=== PATIENT | male | born 1965 | race Caucasian/White ===

== ENCOUNTER 2018-02-26 12:44 | Emergency (ER) | payer SELFPAY ==
[2018-02-26] MEDS ORDERED: Sodium Chloride 0.9% 1,000 ML ONE (13:23)
[2018-02-26 13:49] LABS: ALT (SGPT) 19 U/L (8-55); AST (SGOT) 24 U/L (5-34); Alkaline Phosphatase 78 U/L (40-150); Anion Gap 16 mmol/L (10-20); BUN (Urea Nitrogen) 13 mg/dL (8.4-25.7); Bilirubin, Total 0.5 mg/dL (0.2-1.2); Calc. Creatinine Clearance 0 mL/min (70-130); Calcium 9.6 mg/dL (7.8-10.44); Carbon Dioxide 23 mmol/L (22-29); Chloride 103 mmol/L (98-107); Estimated GFR-MDRD Greater than 90; Globulin 3.9 g/dL (2.4-3.5); Glucose 111 mg/dL (70-105); Potassium 3.5 mmol/L (3.5-5.1); Protein, Total 7.9 g/dL (6.0-8.3); Sodium 138 mmol/L (136-145)
[2018-02-26 14:06] LABS: Band 8 % (5-11); Hemoglobin 16.7 g/dL (14.0-18.0); Lymphocytes 15 % (21-51); MDiff Complete? YES; Mean Corpuscular HGB CONC 32.1 g/dL (32.0-36.0); Mean Corpuscular Hemoglobin 29.6 pg (27.0-31.0); Mean Corpuscular Volume 92.1 fl (80.0-94.0); Mean Platelet Volume 7.6 fL (7.4-10.4); Monocytes 6 % (0-10); Neutrophil 71 % (42-75); PLT Morphology Comment Appears Adequate; Platelet Count 193 thou/uL (130-400); RBC Distribution Width 13.5 % (11.5-14.5); RBC Morphology Normal; Red Blood Cell (RBC) Count 5.63 mill/uL (4.70-6.10); White Blood Cell (WBC) Count 13.6 thou/uL (4.8-10.8)
[2018-02-26 14:12] LABS: Bilirubin Small (Negative); Blood, Urine Moderate (Negative); Clarity Clear (Clear); Glucose, Urine (Dipstick) Negative (Negative); Leukocyte Negative (Negative); Nitrite Negative (Negative); Protein, Urine (Dipstick) 100 mg/dL (Neg-Trace)
--- NOTE | 2018-02-26 14:13 | RAD ---
PORTABLE CHEST 1 VIEW: Date: 02/26/18 HISTORY: 53-year-old male with history of cough, left leg redness with streaking from ankle to groin. FINDINGS: Heart size is normal. The lungs are clear of acute process. No confluent pneumonia, overt edema, or p leural effusion. Old granuloma calcifications on the right. IMPRESSION: Old granulomatous disease. No evidence of pneumonia or other acute process. POS: [facility]
[2018-02-26] MEDS ORDERED: Vancomycin HCl 500 MG VIAL ONE (14:15)
[2018-02-26] MEDS ORDERED: Vancomycin HCl 750 MG VIAL ONE (14:16)
[2018-02-26] MEDS ORDERED: Sodium Chloride 0.9% 500 ML ONE (14:18)
[2018-02-26 14:43] LABS: Bacteria/HPF Rare-Few HPF (None Seen); Specific Gravity, Urine 1.028 (1.002-1.036); Squamous Epithelial 0-3 HPF (0-3); WBC/HPF 0-3 HPF (0-3)
== END 2018-02-26 15:22 | disposition short-term general hospital (02) ==
LOC: NAV ERS 12:44
DX: L03.116 Cellulitis of left lower limb (principal); F17.210 Nicotine dependence, cigarettes, uncomplicated
CPT/HCPCS: 71045; 80053; 81003; 81015; 83605; 85025; 85379; 87040; 87804; 96361; 96365; J3370; J7050